=== PATIENT | male | born 1990 | race Caucasian/White ===

== ENCOUNTER 2016-12-29 15:21 | Emergency (ER) | payer OTHER, MEDICAID ==
[~2016-12-29] VITALS: Ht 172.7 cm; Wt 82.3 kg
[2016-12-29 15:29] VITALS: BP 125/70; TEMP 97.5
[2016-12-29] MEDS ORDERED: ADDERALL XR25 MG PO (15:33)
[2016-12-29] MEDS ORDERED: TOPAMAX 25MG25 M1 PO (15:33)
[2016-12-29] MEDS ORDERED: PROTONIX20 MG PO (15:33)
[2016-12-29 16:58] VITALS: PULSE 86
== END 2016-12-29 16:58 | disposition home or self-care (01) ==
LOC: COL.ER 15:21
DX: S60.221A Contusion of right hand, initial encounter (principal); W22.8XXA Striking against or struck by other objects, initial encounter; Y92.000 Kitchen of unspecified non-institutional (private) residence as the place of occurrence of the external cause

== ENCOUNTER → 2018-02-18 | Outpatient (CLI) | payer OTHER, MEDICAID ==
[~2018-02-18] MED LIST: ADDERALL XR25 MG PO; PROTONIX20 MG PO; TOPAMAX 25MG25 M1 PO
== END ==
LOC: COL.RAD 14:26
DX: M79.641 Pain in right hand (principal); R29.898 Other symptoms and signs involving the musculoskeletal system

== ENCOUNTER → 2018-03-13 | Outpatient (CLI) | payer OTHER, MEDICAID | LOC: COL.RAD 10:07 | DX: M79.641 Pain in right hand (principal) | CPT/HCPCS: J3301; Q9967 ==

== ENCOUNTER → 2018-06-12 | Outpatient (CLI) | payer OTHER, MEDICAID | LOC: COL.RAD 08:57 | DX: M79.641 Pain in right hand (principal) | CPT/HCPCS: J3301; Q9967 ==